=== PATIENT | male | born 1940 | race Caucasian/White ===

== ENCOUNTER 2020-03-12 13:31 | Emergency (ER) | payer OTHER ==
[~2020-03-12] VITALS: Ht 165.1 cm; Wt 72.6 kg
[2020-03-12 14:24] LABS: Basophils # (auto) 0.1 10 ^3/uL (0-0.2); Eosinophils # (auto) 0.1 10 ^3/uL (0-0.8); Eosinophils % (auto) 1.4 % (0.0-7.0); Hematocrit 39.4 % (41.0-53.0); Hemoglobin 13.1 g/dL (13.5-17.5); Lymphocytes # (auto) 1.2 10 ^3/uL (0.4-5.4); Lymphocytes % (auto) 21.2 % (10.0-50.0); Mean Corpuscular Hemoglobin 31.1 pg (28.0-32.0); Mean Corpuscular Hgb Conc. 33.3 g/dL (32.0-36.0); Mean Corpuscular Volume 93.3 fL (80.0-100.0); Monocytes # (auto) 0.5 10 ^3/uL (0-1.3); Monocytes % (auto) 9.2 % (0.0-12.0); Neutrophils # (auto) 3.9 10 ^3/uL (1.6-8.6); Neutrophils % (auto) 67.2 % (37.0-80.0); Platelet Count (auto) 196 10^3/uL (140-450); Red Blood Cells 4.23 10^6/uL (4.5-5.90); Red Cell Distribution Width 15.1 % (11.8-14.3); White Blood Cell 5.7 10^3/uL (4.4-10.8)
[2020-03-12 14:41] LABS: Albumin 3.3 g/dL (3.4-5.0); Calcium 8.8 mg/dL (8.5-10.1); Potassium 4.5 mmol/L (3.5-5.1)
[2020-03-12 14:44] LABS: BUN/Creatinine Ratio 18.2; Bilirubin, Total 0.4 mg/dL (0.2-1.0); Total Protein 6.9 g/dL (6.4-8.2)
[2020-03-12 15:56] VITALS: BP 150/58
== END 2020-03-12 16:37 | disposition home or self-care (01) ==
LOC: ER 13:31
DX: L03.116 Cellulitis of left lower limb (principal); L03.115 Cellulitis of right lower limb; M19.90 Unspecified osteoarthritis, unspecified site; E78.5 Hyperlipidemia, unspecified
CPT/HCPCS: 36415; 80053; 85025

== ENCOUNTER 2020-04-07 12:38 | Inpatient (IN) | payer OTHER ==
[~2020-04-07] VITALS: Ht 170.2 cm; Wt 70.8 kg
[2020-04-07 17:33] LABS: Basophils # (auto) 0.1 10 ^3/uL (0-0.2); Basophils % (auto) 0.6 % (0.0-2.0); Eosinophils # (auto) 0 10 ^3/uL (0-0.8); Eosinophils % (auto) 0.4 % (0.0-7.0); Hematocrit 39.8 % (41.0-53.0); Hemoglobin 13.2 g/dL (13.5-17.5); Lymphocytes # (auto) 1.1 10 ^3/uL (0.4-5.4); Lymphocytes % (auto) 9.2 % (10.0-50.0); Mean Corpuscular Hemoglobin 30.5 pg (28.0-32.0); Mean Corpuscular Hgb Conc. 33.2 g/dL (32.0-36.0); Mean Corpuscular Volume 91.9 fL (80.0-100.0); Monocytes # (auto) 0.7 10 ^3/uL (0-1.3); Monocytes % (auto) 6.3 % (0.0-12.0); Neutrophils # (auto) 9.8 10 ^3/uL (1.6-8.6); Neutrophils % (auto) 83.5 % (37.0-80.0); Platelet Count (auto) 162 10^3/uL (140-450); Red Blood Cells 4.34 10^6/uL (4.5-5.90); Red Cell Distribution Width 14.7 % (11.8-14.3); White Blood Cell 11.7 10^3/uL (4.4-10.8)
[2020-04-07 17:47] LABS: Alanine Aminotransferase 13 U/L (16-61); Anion Gap 3 (5-15); Blood Urea Nitrogen 18 mg/dL (7-18); Calcium 8.6 mg/dL (8.5-10.1); Carbon Dioxide 28 mmol/L (21-32); Chloride 107 mmol/L (98-107); Glucose 100 mg/dL (74-106); Sodium 138 mmol/L (136-145)
[2020-04-07 17:52] LABS: Alkaline Phosphatase 88 U/L (45-117); Aspartate Aminotransferase 12 U/L (15-37); BUN/Creatinine Ratio 19.6; GFR African American 102 mL/min; GFR Non-African American 84 mL/min; Total Protein 7.1 g/dL (6.4-8.2)
[2020-04-07] MEDS ORDERED: levoFLOXacin 500MG 100 ML IV ONE (19:15)
[2020-04-07] MEDS ORDERED: SOD CHL 0.45% 500 ML IV ONE (19:30)
[2020-04-07] MEDS ORDERED: SODIUM CHLORIDE 0.9% 1,000 ML IV ONE (21:30)
[2020-04-09 13:18] LABS: Basophils # (auto) 0 10 ^3/uL (0-0.2); Basophils % (auto) 0.6 % (0.0-2.0); Eosinophils # (auto) 0.1 10 ^3/uL (0-0.8); Eosinophils % (auto) 1.9 % (0.0-7.0); Hematocrit 45.2 % (41.0-53.0); Hemoglobin 15.1 g/dL (13.5-17.5); Lymphocytes # (auto) 0.6 10 ^3/uL (0.4-5.4); Lymphocytes % (auto) 10.9 % (10.0-50.0); Mean Corpuscular Hemoglobin 30.5 pg (28.0-32.0); Mean Corpuscular Hgb Conc. 33.3 g/dL (32.0-36.0); Mean Corpuscular Volume 91.4 fL (80.0-100.0); Monocytes # (auto) 0.5 10 ^3/uL (0-1.3); Monocytes % (auto) 8.4 % (0.0-12.0); Neutrophils # (auto) 4.4 10 ^3/uL (1.6-8.6); Neutrophils % (auto) 78.2 % (37.0-80.0); Platelet Count (auto) 202 10^3/uL (140-450); Red Blood Cells 4.94 10^6/uL (4.5-5.90); Red Cell Distribution Width 14.5 % (11.8-14.3); White Blood Cell 5.7 10^3/uL (4.4-10.8)
[2020-04-09 13:35] LABS: Albumin 2.9 g/dL (3.4-5.0); Calcium 9.1 mg/dL (8.5-10.1); Potassium 3.9 mmol/L (3.5-5.1)
[2020-04-09 13:39] LABS: Bilirubin, Total 0.9 mg/dL (0.2-1.0); Total Protein 7.5 g/dL (6.4-8.2)
[2020-04-10] MEDS ORDERED: hydrALAZINE HCL 20 MG/ML VL IV PRN ×2 (18:45→22:00)
[2020-04-10] MEDS ORDERED: ONDANSETRON HCL 4 MG/2 ML VIAL IV PRN ×2 (18:45→22:00)
[2020-04-10] MEDS ORDERED: MORPHINE SULF INJ 2 MG/ML SYRINGE 1ML IV PRN ×4 (18:45→22:00)
[2020-04-10] MEDS ORDERED: DOCUSATE SOD 100 MG CAP PO PRN ×2 (18:45→22:00)
[2020-04-10] MEDS ORDERED: HYDROcodone-ACET 5/325MG TAB PO PRN ×2 (18:45→22:00)
[2020-04-10] MEDS ORDERED: ALUM & MAG HYDROX-SIMETH LIQ(MAALOX) 30 ML PO PRN ×2 (18:45→22:00)
[2020-04-10] MEDS ORDERED: LORazepam 0.5 MG TAB PO PRN ×2 (18:45→22:00)
[2020-04-10] MEDS ORDERED: NITROGLYCERIN 0.4 MG SL TAB SL PRN ×2 (18:45→22:00)
[2020-04-10 19:24] LABS: Cholesterol 210 mg/dL (< 200); HDL Cholesterol 24 mg/dL (40-59); LDL Cholesterol 180 mg/dL (< 100); Triglycerides 122 mg/dL (< 150)
[2020-04-10 20:30] VITALS: BP 113/53
[2020-04-10] MEDS: TERAZOSIN HCL 5 MG CAP PO SCH (21:57)
[2020-04-10] MEDS: ATORVASTATIN 20 MG TAB PO SCH (21:58)
[2020-04-10 22:00] VITALS: BP 113/53
[2020-04-10] MEDS ORDERED: ATORVASTATIN 20 MG TAB PO SCH (22:00)
[2020-04-10] MEDS ORDERED: TERAZOSIN HCL 5 MG CAP PO SCH (22:00)
[2020-04-10] MEDS: SODIUM CHLORIDE 0.9% 1,000 ML IV SCH (23:00)
[2020-04-11 05:00] VITALS: BP 104/74
[2020-04-11 06:40] LABS: Basophils # (auto) 0.1 10 ^3/uL (0-0.2); Basophils % (auto) 1.4 % (0.0-2.0); Eosinophils # (auto) 0.1 10 ^3/uL (0-0.8); Hematocrit 42.8 % (41.0-53.0); Hemoglobin 14.4 g/dL (13.5-17.5); Lymphocytes # (auto) 1.5 10 ^3/uL (0.4-5.4); Lymphocytes % (auto) 19.8 % (10.0-50.0); Mean Corpuscular Hemoglobin 30.2 pg (28.0-32.0); Mean Corpuscular Hgb Conc. 33.7 g/dL (32.0-36.0); Mean Corpuscular Volume 89.7 fL (80.0-100.0); Monocytes # (auto) 0.8 10 ^3/uL (0-1.3); Monocytes % (auto) 10.9 % (0.0-12.0); Neutrophils # (auto) 4.9 10 ^3/uL (1.6-8.6); Neutrophils % (auto) 65.9 % (37.0-80.0); Nucleated Red Blood Cells % 0.1 %; Platelet Count (auto) 261 10^3/uL (140-450); Red Blood Cells 4.77 10^6/uL (4.5-5.90); Red Cell Distribution Width 14.3 % (11.8-14.3); White Blood Cell 7.4 10^3/uL (4.4-10.8)
[2020-04-11 06:46] LABS: INR 1.15 (0.9-1.15); Partial Thromboplastin Time 29.3 sec (23.64-32.05)
[2020-04-11 06:49] LABS: Albumin 2.9 g/dL (3.4-5.0); Anion Gap 6 (5-15); Blood Urea Nitrogen 18 mg/dL (7-18); Carbon Dioxide 26 mmol/L (21-32); Chloride 107 mmol/L (98-107); Glucose 89 mg/dL (74-106); Magnesium 2.5 mg/dL (1.6-2.6); Potassium 3.5 mmol/L (3.5-5.1); Sodium 139 mmol/L (136-145)
[2020-04-11 06:56] LABS: Alanine Aminotransferase 16 U/L (16-61); Alkaline Phosphatase 82 U/L (45-117); Aspartate Aminotransferase 15 U/L (15-37); BUN/Creatinine Ratio 19.8; Bilirubin, Total 0.7 mg/dL (0.2-1.0); GFR African American 103 mL/min; GFR Non-African American 85 mL/min; Phosphorus 3.4 mg/dL (2.5-4.90); Total Protein 7.1 g/dL (6.4-8.2)
[2020-04-11 09:00] VITALS: BP 115/59
[2020-04-11] MEDS ORDERED: ENOXAPARIN SOD 40 MG/0.4 ML SYRINGE SC SCH (10:00)
[2020-04-11] MEDS: Ensure Enlive Strawberry 8oz Bottle PO SCH ×3 (10:11→18:31)
[2020-04-11 13:00] VITALS: BP 115/57
[2020-04-11] MEDS: CEFTRIAXONE SODIUM 2 GM in D5W 5% 50 ML IV SCH (13:16)
[2020-04-11] MEDS: ENOXAPARIN SOD 40 MG/0.4 ML SYRINGE SC SCH (13:17)
[2020-04-11] MEDS: SODIUM CHLORIDE 0.9% 1,000 ML IV SCH (13:17)
[2020-04-11 17:36] VITALS: BP 113/60
[2020-04-11] MEDS: TERAZOSIN HCL 5 MG CAP PO SCH (21:51)
[2020-04-11] MEDS: ATORVASTATIN 20 MG TAB PO SCH (21:51)
[2020-04-11 22:00] VITALS: BP 119/59
[2020-04-12] MEDS: SODIUM CHLORIDE 0.9% 1,000 ML IV SCH ×2 (03:53→20:33)
[2020-04-12 05:40] VITALS: BP 134/71
[2020-04-12 09:00] VITALS: BP 116/53
[2020-04-12 09:25] LABS: Folate (Folic Acid) 16.68 ng/mL (5.38-24)
[2020-04-12] MEDS: ENOXAPARIN SOD 40 MG/0.4 ML SYRINGE SC SCH (09:28)
[2020-04-12] MEDS: CEFTRIAXONE SODIUM 2 GM in D5W 5% 50 ML IV SCH (09:28)
[2020-04-12] MEDS: Ensure Enlive Strawberry 8oz Bottle PO SCH ×3 (09:29→18:00)
[2020-04-12 13:00] VITALS: BP 108/56
[2020-04-12 16:53] VITALS: BP 108/56
[2020-04-12 17:00] VITALS: BP 116/66
[2020-04-12 20:00] VITALS: BP 121/67
[2020-04-12] MEDS: ATORVASTATIN 20 MG TAB PO SCH (21:05)
[2020-04-12] MEDS: TERAZOSIN HCL 5 MG CAP PO SCH (21:09)
== END 2020-04-12 23:11 | disposition home health service (06) | DRG 70 ==
LOC: ER 12:38 → EDBD 12:38 → TELE 12:39 → TELE-WESTW 04-10 20:22
PROVIDERS: ADMIT Hospitalist; ATTEND Internal Medicine
DX: G93.41 Metabolic encephalopathy (principal); E43 Unspecified severe protein-calorie malnutrition; R62.7 Adult failure to thrive; G30.9 Alzheimer's disease, unspecified; M19.90 Unspecified osteoarthritis, unspecified site; E78.5 Hyperlipidemia, unspecified; N40.0 Benign prostatic hyperplasia without lower urinary tract symptoms; R32 Unspecified urinary incontinence; K21.9 Gastro-esophageal reflux disease without esophagitis; F02.80 Dementia in other diseases classified elsewhere, unspecified severity, without behavioral disturbance, psychotic disturbance, mood disturbance, and anxiety; N18.9 Chronic kidney disease, unspecified; E11.22 Type 2 diabetes mellitus with diabetic chronic kidney disease; I12.9 Hypertensive chronic kidney disease with stage 1 through stage 4 chronic kidney disease, or unspecified chronic kidney disease; Z68.23 Body mass index [BMI] 23.0-23.9, adult
CPT/HCPCS: 36415; 70450; 71045; 80053; 80061; 82607; 82746; 82962; 83036; 83735; 84100; 84443; 84484; 85025; 85610; 85730; 87040; 93005; 93306; 95819; 96361; 96365; 97163; G0378; J0696; J1956; J7060